=== PATIENT | female | born 1950 | race Caucasian/White ===

== ENCOUNTER 2022-01-26 10:56 | Emergency (ER) | payer MEDICARE, BC, SELFPAY ==
[2022-01-26 11:31] VITALS: BP 184/91; PULSE 71; RESP 18; TEMP 35.8; O2SAT 97; BMI 22.5
--- NOTE | 2022-01-26 11:37 | CRLHL7_ITS ---
For Patients: As a result of the Century Cures Act, medical imaging exams and procedure reports are released immediately into your electronic medical record. You may view this report before your referring provider. If you have questions, please contact your health care provider. Indication: Fall Technique: Two views left forearm Comparison: None Findings: Fracture of the distal radius. Proximal radius appears normal. Intact ulna. Degenerative changes at the wrist. Impression: Distal radial fracture. Dictated by Jacky Lynn MD @ 01/26/2022 12:59:31 PM (Electronically Signed)
--- NOTE | 2022-01-26 11:37 | CRLHL7_ITS ---
For Patients: As a result of the Cures Act, medical imaging exams and procedure reports are released immediately into your electronic medical record. You may view this report before your referring provider. If you have questions, please contact your health care provider. Indication: Fall, pain Technique: Three views left wrist Comparison: None Findings: Dorsally impacted intra-articular fracture of the distal radial metaphysis with comminution. Soft tissue swelling. Degenerative joint disease. Impression: Displaced intra-articular fracture of the distal radial metaphysis with dorsal impaction. Dictated by Jacky Lynn MD @ 01/26/2022 12:58:44 PM (Electronically Signed)
--- NOTE | 2022-01-26 11:37 | CRLHL7_ITS ---
For Patients: As a result of the Century Cures Act, medical imaging exams and procedure reports are released immediately into your electronic medical record. You may view this report before your referring provider. If you have questions, please contact your health care provider. Indication: Injury and pain Technique: Left elbow 3 views Comparison: None Findings: Bones: Alignment is normal. No fractures or bone lesions. Joint spaces: Unremarkable. No sign of joint effusion. Soft tissues: Unremarkable. Impression: No sign of acute injury. Dictated by Jacky Lynn MD @ 01/26/2022 12:57:43 PM (Electronically Signed)
--- NOTE | 2022-01-26 11:38 | ED_ITS ---
HPI - General Adult General Time Seen by Provider: 11:37 Date Seen: 01/26/22 Chief complaint: Extremity Pain/Injury, Upper Stated complaint: fall/left arm injury Time Seen by Provider: 01/26/22 10:58 Source: patient Mode of arrival: ambulatory Limitations: no limitations History of Present Illness HPI narrative: Patient is a 8 year white female was at the dog park with her dog, who has visual deficiency, the dog was playing with other dogs in accidentally ran into the poly and caution to fall on an outstretched arm on the left. Patient reports swelling on the volar surface and dorsum of the wrist, just some very minimal elbow discomfort but she is able to flex extend her elbow fully. Limited range of motion at the wrist. No open wounds. No other injuries to her neck back arms, but she did report a little bit of a sprained ankle on the right, but she is ambulatory and she has no lateral malleolar tenderness or medial malleolar tenderness or swelling. She is able to ambulate without difficulty Related Data Home Medications Medication Instructions Recorded Confirmed No Known Home Medications 01/26/22 01/26/22 Allergies Allergy/AdvReac Type Severity Reaction Status Date / Time No Known Drug Allergies Allergy Verified 01/26/22 11:36 Review of Systems Status of ROS: Reports: 6 or more systems reviewed and unremarkable except as noted in History and below [facility] Social History Smoking Status: Never smoker Second hand tobacco smoke exposure: No How often do you have a drink containing alcohol: never How often do you have six or more drinks on one occasion: Never AUDIT-C Alcohol total score: 0 Non-prescribed substance use: denies use service: No Exam Const: Vital Signs, click to edit/add: Vital Signs - 24 hr 01/26/22 11:31 Temperature 96.4 F L Pulse Rate [Pulse Oximeter] 71 Respiratory Rate 18 Blood Pressure [Ri ght Upper Arm] 184/91 H Pulse Oximetry 97 Course Course Hospital Course: Patient reports she is on no medications at home, did take ibuprofen before coming here. Does not have any allergies to medications. Has no chronic health problems. Vital Signs Vital signs: Initial Vital Signs Temperature 96.4 F L 01/26/22 11:31 Temperature Source Temporal Artery Scan 01/26/22 11:31 Pulse Rate 71 07/06/22 11:31 Respiratory Rate 18 01/26/22 11:31 Blood Pressure 184/91 H 01/26/22 11:31 Blood Pressure Mean 122 01/26/22 11:31 Blood Pressure Position Right Lateral 01/26/22 11:31 Pulse Oximetry 97 01/26/22 11:31 Oxygen Delivery Method 01/26/22 11:31 Vital Signs Temperature 96.4 F L 01/26/22 11:31 Pulse Rate 71 01/26/22 11:31 Respiratory Rate 18 01/26/22 11:31 Blood Pressure 184/91 H 01/26/22 11:31 Pulse Oximetry 97 01/26/22 11:31 Temperature 96.4 F L 01/26/22 11:31 Pulse Rate 71 01/26/22 11:31 Respiratory Rate 18 01/26/22 11:31 Blood Pressure 184/91 H 01/26/22 11:31 Pulse Oximetry 97 01/26/22 11:31 Medical Decision Making MDM Narrative Medical decision making narrative: Patient fell on an outstretched left arm rule out scaphoid fracture, rule out distal radial fracture. Discharge Plan Discharge Clinical Impression: Fracture of wrist Patient Disposition: Home, Self-Care Condition: Improved Additional Instructions: splint precautions, advil/tylenol as needed.ortho in 3-4 days. Activity Level: Light activity Discharge Diet: Regular Prescriptions: No Action No Known Home Medications 0RF Follow Up/Referrals: Frida Mike MD [Primary Care Provider] - Stand Alone [facility]
--- NOTE | 2022-01-26 12:50 | ED.NURSE ---
Patient comfortably resting left arm in sling, orthoglass short arm applied by Dr. Shields. Scheduled for ortho follow up on 929. Patient advised to utilize motrin per bottle instructions, ice a few times a day for 15 minutes each. No questions/concerns.
== END 2022-01-26 12:59 | disposition home or self-care (01) ==
PROVIDERS: Emergency Provider Family Medicine; PCP Internal Medicine
DX: S52.572A Other intraarticular fracture of lower end of left radius, initial encounter for closed fracture (principal); W01.0XXA Fall on same level from slipping, tripping and stumbling without subsequent striking against object, initial encounter
CPT/HCPCS: 29125; 73080; 73090; 73110; 99284

== ENCOUNTER 2022-02-07 07:51 | Day surgery (SDC) | payer MEDICARE, BC, SELFPAY ==
[2022-02-07] VITALS (7 sets, daily range): BP systolic 108–168; BP diastolic 69–137; PULSE 57–77; RESP 16; TEMP 36.3–36.6; O2SAT 94–99; BMI 22.2
--- NOTE | 2022-02-07 | CRLHL7_ITS ---
For Patients: As a result of the Cures Act, medical imaging exams and procedure reports are released immediately into your electronic medical record. You may view this report before your referring provider. If you have questions, please contact your health care provider. Indication: LEFT WRIST ORIF Technique: Two fluoroscopic images of the left wrist. Fluoroscopic time 15.2 seconds. IMPRESSION: Fluoroscopic guidance for ORIF distal radial fracture. Dictated by Jacky Lynn MD @ 02/08/2022 10:18:08 AM (Electronically Signed)
[2022-02-07] MEDS: MIDAZOLAM HCL 1 MG/ML inj IVP (07:57)
[2022-02-07] MEDS: fentaNYL 100 MCG/2 ML inj IVP (07:57)
[2022-02-07] MEDS: LACTATED RINGERS 1000 ML 1,000 ML 100 ML IV (08:00)
[2022-02-07] MEDS: SODIUM CHLORIDE 0.9 % (FLUSH) 10 ML SYRINGE IVF (08:30)
--- NOTE | 2022-02-07 08:59 | SUR.PREOP ---
TIME?OUT:?0858 PT/Fabiano MONTOYA RN/ Anabelle CURTIS CRNA, Abelino DURANT CRNA VERIFICATION?OF?SURGICAL?SITE,?PROCEDURE,?AND?CONSENT OBTAINED?PRIOR?TO?INVASIVE?PROCEDURE.
--- NOTE | 2022-02-07 09:51 | P.NB_ITS ---
Nerve Block Nerve Block Time Seen by Provider: 09:00 Date Seen: 02/07/22 Type of block requested by surgeon for post-operative analgesia: axillary Side: left Time out performed: Yes Verification of patient name: Yes Verification of date of : Yes Site marking: site marked Name of person performing procedure: yolande Assistants, if any: bruno Continuous monitoring Was continuous monitoring of O2 sat, B/P, cardiac cath lab manager, recorded every 15 minutes?: Yes Procedure Checklist: sterile prep and needles Ultrasound guided. Images saved: Yes Medications given in 5ml increments after negative aspiration: Ropivicaine Decadron (mg): 10 Precedex (mcg): 20 Patient tolerated procedure well: Yes
--- NOTE | 2022-02-07 10:12 | PM.ORPRC ---
Procedure Note Date of procedure: 02/07/22 Procedure: PREOPERATIVE DIAGNOSES: 1. Left distal radius fracture intra-articular, three-part fracture, dorsally angulated and displaced - unstable POSTOPERATIVE DIAGNOSES: 1. Left distal radius fracture intra-articular, three-part fracture, dorsally angulated and displaced - unstable NAME OF OPERATION: 1. Left distal radius open reduction with internal fixation of intraarticular fracture (3 parts) SURGEON: Chao Moore MD INFORMATION ASSURANCE: Timothy Abad PA-C - Of note, an behavioral modification assistant was critical for this case to aide in patient positioning, limb manipulation, tissue retraction, closure, and splinting. ANESTHESIA: Supraclavicular block EBL: Less than 10 mL IMPLANTS: Synthes dual column volar locking plate with 2.4 mm distal locking pegs; 2.4 and 2.7 mm locking and nonlocking cortical shaft screws, respectively. TOURNIQUET: 31 minutes at 225 torr. INDICATIONS: The patient is a pleasant, 71-year-old female who sustained a left wrist injury after a fall. They had difficulty with use of the extremity and deformity. Workup included xrays which revealed an unstable fracture. Given these findings, surgery was recommended to stablize the fracture. FINDINGS: Closed, intra-articular 3 part distal radius fracture with dorsal angulation and displacement. PROCEDURE: Following a thorough discussion of risks, benefits, and alternatives, consent was obtained and the operative extremity was marked. The patient was brought to the operating room and placed supine on the operating table. Induction of anesthesia was achieved. Appropriate time out was performed identifying proper patient, site and procedure. 1 gram of iv Ancef was administered within 1 hour of incision preoperatively. The left upper extremity was prepped and draped in the appropriate sterile fashion using ChloraPrep prep. The limb was exsanguinated and the tourniquet inflated. A longitudinal incision was made overlying the FCR tendon. Sharp incision through skin and subcutaneous tissue allowed identification of the FCR tendon. The superficial sheath was sharply divided, the tendon retracted ulnarly, and the deep fascial sheath also released. The FPL was retracted ulnarly and the pronator quadratus was sharply released from the radial border of the radius and subperiosteally elevated. The fracture was encountered and cleared of interposed periosteum / fracture hematoma. A reduction was performed and the appropriate plate selected. Temporary stabilization allowed C-arm fluoroscopy to confirm proper fracture reduction and plate positioning. The oblong hole was filled with a nonlocking screw followed by multiple distal locking pegs being careful to keep these in subchondral bone and extraarticular. Finally, the remaining proximal shaft screws were drilled and placed. Fluoroscopic imaging confirmed the improved position and showed the fracture to be stable. At this stage, the wound was thoroughly irrigated with normal saline. Closure performed with 0 Vicryl for the pronator quadratus, followed by deflation of the tourniquet. All major bleeding points were cauterized. Closure was then completed with 3-0 Vicryl for the subcutaneous, and 4-0 statafix for subcuticular closure. Dressings were applied along with a volar/dorsal splint. The patient was awoken from anesthesia and transferred to PACU in stable condition. PLAN: 1. Elevate operative extremity. 2. Ice, acetominphen or ibuprofen PRN. 3. Percocet for pain as needed. 4. Follow up with PA visit in 10-16 days for wound check and splint removal.
--- NOTE | 2022-02-07 10:16 | W.ANESCHARGE ---
Anesthesia Charges Start Date/Time Anesthesia Start Date: 02/07/22 Anesthesia Start Time: 09:15 Stop Date/Time Anesthesia Stop Date: 02/07/22 Anesthesia Stop Time: 10:38 Summary Emergency: No
== END 2022-02-07 11:30 | disposition home or self-care (01) ==
PROVIDERS: PCP Internal Medicine; Visit Provider Orthopaedic Surgery Sports Medicine
PROC: (CPT 25575; principal; 2022-02-07 09:25)
DX: S52.572A Other intraarticular fracture of lower end of left radius, initial encounter for closed fracture (principal)
CPT/HCPCS: 25609; 01830; 64417; 73100; 76000; 76942; A4580; C1713; J1100; J2250; J2704; J2795; J3010; J7120

== ENCOUNTER 2022-04-07 09:45 | Outpatient (RCR) | payer MEDICARE, BC, SELFPAY ==
--- NOTE | 2022-03-03 18:11 | OT.OPOE ---
OT Outpatient Ortho Eval OT Outpatient Ortho Eval Start: 03/03/22 13:21 Freq: Status: Active Protocol: Document 03/03/22 13:27 AMB (Rec: 03/03/22 13:46 AMB [id number]) E-signed By Thalia Mitchell, OTR/L, CLT, DOLPHIN RESEARCHER OT OP Ortho Eval Details Type Type Eval Complexity Low Outpatient History/Precautions Insurance Information Insurance Information Medicare B Current Condition/Medical Diagnosis Referring Provider Timothy Abad PA-C Treatment Diagnosis LUE wrist fx s/p ORIF Date of Onset 02/07/22 Other Precautions PMH: Osteopenia (2014) Surgical History: H/O left wrist surgery (~2021) History of blepharoplasty () Status post arthroscopy of right knee Status post total hysterectomy and bilateral salpingo- oophorectomy (BSO) (~10/2021) Medical/Functional History Medical History Reviewed Yes Social History 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 Pt states she was supposed to get her cast off today, but she got it wet in the shower 2 days ago so they took it off early. Pt states she doesn't have a lot of pain, but her wrist is sore. Pain Assessment Pain Present Pain Present Pain Reported Location Left Wrist Description Throbbing,Acute Intensity 3 Hand Pinch/Hairmasters Manager Strength Comments Comments AROM of forearm pronation is 60, supination is 50, opposition is to the tip of 5th digit, fist is full. Edema Assessment Location Left Hand Edema Type Non-Pitting Edema Appearance Puffy OT Objective Data Hand Hand Dominance Right Skin/Wounds Skin Integrity Comments Surgical wound is clean and dry, no s/s of infection. OT Problems Problems Problems Decreased Strength,Decreased Range of Motion,Decreased Dexterity,Decreased Fine Motor ,Decreased Coordination, Lifting,Gripping,Pinching Other Problems Opening Containers Patient Potential Good Assessment Assessment Assessment Pt presents to OT with mild pain, swelling, limited ROM and weakness in LUE which limits her ability to grasp, lift, carry objects, and open containers. Pt will benefit from skilled OT intervention to address deficits and restore full, pain-free use of her LUE. Pt is very motivated to recover. Occupational Therapy Treatment Plan - OP Potential Rehabilitation Potential Good Set Goals Goals Set with Patient Yes Goals Goals 1. Pt will be independent and compliant with HEP in order to resume full, pain-free use of the involved UE. 3 weeks 2. Pt will demonstrate full, pain-free AROM of the involved UE in order to improve ability to grasp and hold. 6 weeks 3. Pt will demonstrate pain- free grip assembler and pinch strength comparable to the uninvolved side in order to improve functional grasp, hold, reach, and lifting ability needed to complete self-care, leisure tasks, and work activities. 8 weeks. [employer] Date 06/02/22 Progress set Treatment Plan Treatment Plan Evaluation,Edema Control,Joint Mobilization,Manual Therapy, Splinting,Wound Care/Scar Management,Therapeutic Exercise,Therapeutic Activities,Self-Care/Home Management,Education Expected Frequency 1-2x Week Expected Duration 8-10 Weeks Certification Certification I Certify That: Therapy Services Provided, Therapy Plan Established, Therapy Plan Reviewed
== END 2023-02-09 23:59 | disposition home or self-care (01) ==
PROVIDERS: PCP Internal Medicine; Visit Provider Physician Assistant Surgical
DX: S62.102A Fracture of unspecified carpal bone, left wrist, initial encounter for closed fracture (principal); Z51.89 Encounter for other specified aftercare
CPT/HCPCS: 97110; 97140; 97165; 97530; X5282

== ENCOUNTER 2022-09-19 13:51 | Outpatient (CLI) | payer MEDICARE, BC, SELFPAY ==
--- NOTE | 2022-09-19 14:00 | CRLHL7_ITS ---
For Patients: As a result of the Century Cures Act, medical imaging exams and procedure reports are released immediately into your electronic medical record. You may view this report before your referring provider. If you have questions, please contact your health care provider. BILATERAL SCREENING MAMMOGRAM WITH COMPUTER-AIDED DETECTION AND TOMOSYNTHESIS CLINICAL HISTORY: 72-year-old asymptomatic female. Screening evaluation. TECHNIQUE: CC and MLO views were obtained. This digital study was evaluated with the assistance of computer-aided detection. Digital breast tomosynthesis utilized in interpretation. COMPARISON FILM: 08/27/2021, 04/28/2020. BREAST COMPOSITION: The breasts are extremely dense, which lowers the sensitivity of mammography. FINDINGS: Within the mid outer to upper outer RIGHT breast is an area of asymmetric more dense than before seen also on the MLO view in the deep lateral RIGHT breast. The area is rather large and this may simply reflect superimposed breast tissue and it may simply reflect changes in patient positioning between the two studies. However, the patient should be recalled for an exaggerated CC view of the RIGHT breast laterally as well as a true ML view. Ultrasound of the upper outer quadrant may be required to exclude an underlying cystic or solid mass. The LEFT breast is negative and unchanged. IMPRESSION: Generalized area of asymmetry in the upper outer and mid outer RIGHT breast seen on both the CC and MLO views potentially related to differences in patient positioning. However, repeat imaging and possibly RIGHT breast ultrasound are recommended. ASSESSMENT: BI-RADS Category 0: Incomplete: Need Additional Imaging Evaluation and/or Prior Mammograms for Comparison The [facility] will contact the patient for follow-up. A lay language report of this examination will be provided to the patient. Ricardo Samayoa M.D. Diagnostic/Nuclear Medicine Radiologist [email or web address] Transcribed: 10:29 a.m. PT/Dictated by: Ricardo Samayoa MD @ 09/20/2022 8:28:00 AM (Electronically Signed)
== END 2022-09-19 13:52 | disposition home or self-care (01) ==
LOC: MAMMO 13:52
PROVIDERS: PCP Internal Medicine; Visit Provider Internal Medicine
DX: Z12.31 Encounter for screening mammogram for malignant neoplasm of breast (principal); R92.8 Other abnormal and inconclusive findings on diagnostic imaging of breast
CPT/HCPCS: 77063; 77067

== ENCOUNTER 2022-09-21 13:14 | Outpatient (CLI) | payer MEDICARE, BC, SELFPAY | END 2022-09-21 13:15 | disposition home or self-care (01) | LOC: NFLDREF 13:15 | PROVIDERS: PCP Internal Medicine; Visit Provider Internal Medicine | DX: R42 Dizziness and giddiness (principal) | CPT/HCPCS: 80048 ==

== ENCOUNTER 2022-09-22 09:36 | Outpatient (CLI) | payer MEDICARE, BC, SELFPAY ==
--- NOTE | 2022-09-22 09:45 | CRLHL7_ITS ---
For Patients: As a result of the Century Cures Act, medical imaging exams and procedure reports are released immediately into your electronic medical record. You may view this report before your referring provider. If you have questions, please contact your health care provider. DIGITAL DIAGNOSTIC RIGHT MAMMOGRAM USING TOMOSYNTHESIS AND COMPUTER-AIDED DETECTION INDICATION: 72-year-old female. Follow-up an asymmetric density in the upper outer RIGHT breast. TECHNIQUE: Exaggerated CC view of the RIGHT breast were performed laterally. A true ML view was performed. COMPARISON: 08/27/2021. 09/19/2022. FINDINGS: The previously suggested asymmetry in the upper outer RIGHT breast is simply superimposed breast tissue. No underlying mass. No architecture distortion. No suspicious microcalcifications. The breast tissue is heterogeneously dense, which may obscure small masses. Ultrasound is not recommended at this time. Annual mammography is recommended. These findings were discussed with the patient. IMPRESSION: Negative additional views of the RIGHT breast. BI-RADS Category 1: Negative A lay language report of this examination will be provided to the patient. Dictated by: Ricardo Samayoa MD @09/22/2022 10:21:04 AM j/Dictated by: Ricardo Samayoa MD @ 09/22/2022 10:21:00 AM (Electronically Signed)
== END 2022-09-22 09:37 | disposition home or self-care (01) ==
LOC: MAMMO 09:37
PROVIDERS: PCP Internal Medicine; Visit Provider Internal Medicine
DX: N63.11 Unspecified lump in the right breast, upper outer quadrant (principal); R92.8 Other abnormal and inconclusive findings on diagnostic imaging of breast
CPT/HCPCS: 77065; G0279

== ENCOUNTER 2023-09-20 13:05 | Outpatient (CLI) | payer MEDICARE, SELFPAY ==
--- NOTE | 2023-09-20 13:20 | MM_ITS ---
Patient: TERESA CHICAGO Facility:?[facility] Patient ID:?[id number] Site Patient ID:?[id number]. Site :?[id number] Study:?XRay-Breast Bilateral 3D W/CAD-09/20/2023 1:31:02 PM Ordering Physician:Frida Franco Final Report: BILATERAL SCREENING MAMMOGRAM WITH COMPUTER-AIDED DETECTION AND TOMOSYNTHESIS TECHNIQUE: CC and MLO views were obtained. These mammographic images have been obtained using full-field digital technique. These mammographic images were interpreted with the benefit of computer-aided detection. Breast Tomosynthesis was used in this interpretation. COMPARISON FILM: 09/22/22, 09/19/22, 08/27/21. FINDINGS: The breasts are extremely dense, which lowers the sensitivity of mammography. IMPRESSION: There is no radiographic evidence for malignancy. ASSESSMENT: BI-RADS Category 1: Negative RECOMMENDATION: Routine screening mammogram in 1 year. A lay language report of this examination will be provided to the patient. Jacky Lynn M.D. Diagnostic Radiologist [email or web address] DSM/sp R& Transcribed: 6:23 p.m. SP/Dictated by: Jacky Lynn MD @ 09/21/2023 10:27:00 AM Signed by:?Jacky Lynn MD @09/22/2023 5:37:13 AM (Electronic Signature)
== END 2023-09-20 13:06 | disposition home or self-care (01) ==
LOC: MAMMO 13:09
PROVIDERS: PCP Internal Medicine; Visit Provider Internal Medicine
DX: Z12.31 Encounter for screening mammogram for malignant neoplasm of breast (principal); R92.2 Inconclusive mammogram
CPT/HCPCS: 77063; 77067

== ENCOUNTER 2023-11-08 08:21 | Outpatient (CLI) | payer MEDICARE, SELFPAY ==
--- OUTSIDE RECORDS SUMMARY | 2023-11-16 12:29 | XMS_ITS | Clinical Summary ---
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 Sprain of lumbar region 02/25/2009 Rib pain 02/25/2009 Social History Tobacco Use Types Packs/Day Years Used Date Smoking Tobacco: Never Smokeless Tobacco: Never Tobacco Cessation:Counseling Given: Yes Alcohol Use Standard Drinks/Week Comments Not Asked 0 (1 standard drink = 0.6 oz pur e alcohol) Social Connections Answer Date Recorded Frequency of Communication with Friends and Fami ly Not on file 07/24/2021 Financial Resource Strain Answer Date R ecorded Difficulty of Paying Living Expenses Not on file 07/24/2021 Difficulty of Paying Living Expenses Not on file 07/24/2021 Sex and Gender Information Value Date Recorded Sex Assigned at Not on file Gender Identity Not on file Sexual Orientation Not on file Obstetrics History Last Filed Vital Signs Vital Sign Reading Time Taken Comments Blood Pressure 147/78 10/16/2020 10:59 AM CDT Pulse 72 10/16/2020 10:59 AM CDT Temperature 36.6 ??C (97.9 ??F) 10/16/2020 10:59 AM C DT Respiratory Rate - - Oxygen Saturation 98% 10/16/2020 10:59 AM CDT Inhaled Oxygen Concentration - - Weight 61.1 kg (134 lb 9.6 oz) 05/11/2020 1:29 P M CDT shoes on Height - - Body Mass Index - - Plan of Treatment Health Maintenance Due Date Last Done Comments Tdap 1962 Depression screening for age 12+ 1963 BMI (ht and wt on same day) for age 18+ 1969 Hepatitis C screening for age 18-79 1969 Tetanus booster 1971 Colonoscopy through age 75 1996 Lipids for age 45-75 1996 Zoster (shingles) series for age 50+ (1 of 2) 06/02/20 Mammogram for age 45-75 03/12/2016 03/12/2015 DEXA/DXA scan for age 65+ 2016 03/12/2015 Medicare Wellness for age 65+ 2016 Pneumococcal series for age 65+ (1 of 1 - PCV) 016 COVID-19 vaccine series ( - 2022-24 season) 3 Influenza for age 65+ 03/24/2024 Procedures Procedure Name Priority Date/Time Associated Diagnosis Comments SCAN-BONE DENSITOMETRY DEXA 03/12/2015 12:00 PM CDT SCAN-MAMMOGRAPHY REPORT 03/12/2015 12:00 AM CDT from Last 3 Months or Most Recently Relevant to Health Maintenance Results * SCAN-BONE DENSITOMETRY DEXA (03/12/2015 12:00 PM CDT) Anatomical Region Laterality Modality Other Scanner OTHER * SCAN-MAMMOGRAPHY REPORT (03/12/2015 12:00 AM CDT) Anatomical Region Laterality Modality Other Scanner OTHER from Last 3 Months or Most Recently Relevant to Health Maintenance Care Teams Breakfast Bar Attendant Relationship Specialty Start Date End Date Lindsay Liz MD PCP - General Family Practice 11/19/10
== END 2023-11-08 08:22 | disposition home or self-care (01) ==
LOC: NFLDREF 11-16 12:23
PROVIDERS: PCP Internal Medicine; Referring Provider Internal Medicine; Visit Provider Internal Medicine
DX: E78.5 Hyperlipidemia, unspecified (principal); M81.0 Age-related osteoporosis without current pathological fracture; M85.80 Other specified disorders of bone density and structure, unspecified site
CPT/HCPCS: 80061; 82306

== ENCOUNTER 2024-10-15 11:20 | Outpatient (CLI) | payer MEDICARE, SELFPAY ==
--- NOTE | 2024-10-15 11:30 | CRLHL7_ITS ---
For Patients: As a result of the Century Cures Act, medical imaging exams and procedure reports are released immediately into your electronic medical record. You may view this report before your referring provider. If you have questions, please contact your health care provider. BILATERAL SCREENING MAMMOGRAM WITH COMPUTER-AIDED DETECTION AND TOMOSYNTHESIS TECHNIQUE: CC and MLO views were obtained. These mammographic images have been obtained using full-field digital technique. These mammographic images were interpreted with the benefit of computer-aided detection. Breast Tomosynthesis was used in this interpretation. COMPARISON FILM: 09/20/23, 09/22/22, 09/19/22. FINDINGS: The breasts are heterogeneously dense, which may obscure small masses. IMPRESSION: There is no radiographic evidence for malignancy. ASSESSMENT: BI-RADS Category 1: Negative RECOMMENDATION: Routine screening mammogram in 1 year. A lay language report of this examination will be provided to the patient. Jacky Lynn M.D. Diagnostic Radiologist [email or web address] SP/Dictated by: Jacky Lynn MD @ 10/22/2024 10:42:00 AM (Electronically Signed)
== END 2024-10-15 11:21 | disposition home or self-care (01) ==
LOC: MAMMO 11:21
PROVIDERS: PCP Internal Medicine; Visit Provider Internal Medicine
DX: Z12.31 Encounter for screening mammogram for malignant neoplasm of breast (principal); R92.333 Mammographic heterogeneous density, bilateral breasts
CPT/HCPCS: 77063; 77067

== ENCOUNTER 2024-12-26 14:42 | Outpatient (CLI) | payer MEDICARE, SELFPAY ==
--- NOTE | 2024-12-26 15:00 | CRLHL7_ITS ---
For Patients: As a result of the Century Cures Act, medical imaging exams and procedure reports are released immediately into your electronic medical record. You may view this report before your referring provider. If you have questions, please contact your health care provider. DXA BONE MINERAL DENSITY STUDY Current height (in): 64. Weight (lb): 133. Menopause age: 56. Ethnicity: White. 1. Have you had a previous hip or vertebral fracture? No. 2. Have you had any fractures during your adult life which did not result from significant trauma (e.g., auto accident)? No. 3. Did either of your parents have a hip fracture? No. 4. Do you smoke? No. 5. Have you ever taken Glucocorticoids? No. 6. Do you have rheumatoid arthritis? No. 7. Do you have secondary osteoporosis? No. 8. Do you drink 3 or more alcoholic drinks per day? No. 9. Are you being treated for osteoporosis? No. 10. Have you ever taken any of the following medications: Actonel, Evista, Fosamax, Miacalcin, Reclast, Boniva, Forteo, HRT (i.e. estrogen/hormone therapy), Protelos, Prolia, Vitamin D, Calcium, other ??? please specify. ANSWER: Yes, Vitamin D. 11. Do you have any of the following medical conditions: Anorexia or bulimia, asthma or emphysema, end stage renal disease, hyperparathyroidism, any seizure disorders, cancer, inflammatory bowel diseases, hysterectomy, other ??? please specify. ANSWER: Yes, Hysterectomy. 12. What was your maximum height (inches)? 65.5. 13. Do you perform weight bearing exercise regularly? Yes. 14. Do you regularly consume dairy products? Yes. 15. Do you drink caffeinated beverages? Yes. 16. At what age did your period start? 12. 17. Are you premenopausal? No. 18. How many full term pregnancies have you had? 2. 19. Have you ever missed your period for more than 6 months in a row (not including or menopause)? No. TECHNIQUE: Bone mineral density study was performed using the [employer]. FINDINGS: The results of the study expressed as bone mineral density (BMD) are as follows: Lumbar spine L1, L4: BMD: 1.037 g/cm2. T-score: 0.0. Z-score: 2.3. Neck Left: BMD: 0.705 g/cm2. T-score: -1.3. Z-score: 0.7. Right: BMD: 0.658 g/cm2. T-score: -1.7. Z-score: 0.3. Total Left: BMD: 0.861 g/cm2. T-score: -0.7. Z-score: 1.0. Right: BMD: 0.907 g/cm2. T-score: -0.3. Z-score: 1.4. Radius Right 33%: BMD: 0.600 g/cm2. T-score: -1.6. Z-score: 0.8. IMPRESSION: Osteopenia. COMPARISON: Compared with scan of 04/30/2020, the bone mineral density has increased by 16.5 percent at the spine and decreased by 1.9 percent at the hip. Compared with scan of 03/12/2015, the bone mineral density has decreased by 8.3 percent at the spine and decreased by 4.0 percent at the hip. FRAX 10-year Fracture Risk Major Osteoporotic Fracture: 11 percent Hip Fracture: 2.3 percent Reported Risk Factors: [place] () Neck BMD=0.658, BMI=22.8 Jacky Lynn M.D. Diagnostic Radiologist [email or web address] BRIAN/rachel DW/Dictated by: Jacky Lynn MD @ 12/30/2024 9:10:00 AM (Electronically Signed)
== END 2024-12-26 14:43 | disposition home or self-care (01) ==
LOC: RAD 14:42
PROVIDERS: PCP Internal Medicine; Visit Provider Internal Medicine
DX: M85.88 Other specified disorders of bone density and structure, other site (principal); M85.89 Other specified disorders of bone density and structure, multiple sites
CPT/HCPCS: 77080

== ENCOUNTER 2025-05-29 21:33 | Emergency (ER) | payer MEDICARE, SELFPAY ==
--- OUTSIDE RECORDS SUMMARY | 2025-05-29 21:34 | XMS_ITS | Clinical Summary ---
Author Organization [employer] [facility] Address [address] [place] [id number] Care Team Providers Care Senior Care Provider Name Role Phone Lindsay Liz MD Primary [...] Paying Living Expenses Not on file 07/24/2021 Comments Unknown Sex and Gender Information Value Date Recorded Sex Assigned at Not on file Legal Sex Female 6:50 AM [employer] Gender Identity Not on file Sexual Orientation Not on file Obstetrics History Last Filed Vital Signs Vital Sign Reading Time Taken Comments Blood Pressure 147/78 10/16/2020 10:59 AM CDT Pulse 72 10/16/2020 10:59 AM CDT Temperature 36.6 C (97.9 F) 10/16/2020 10:59 AM CDT Respiratory Rate - - Oxygen Saturation 98% 10/16/2020 10:59 AM CDT Inhaled Oxygen Concentration - - Weight 61.1 kg (134 lb 9.6 oz) 05/11/2020 1:29 P M CDT shoes on Height - - Body Mass Index - - Plan of Treatment Health Maintenance Due Date Last Done Comments Tetanus booster 1962 Depression screening for age 12+ 1963 BMI (ht and wt on same day) for age 18+ 1969 Hepatitis C screening for ag e 18-79 1969 Colonoscopy through age 75 1996 Lipids for age 45-75 1996 Pneumococcal series for age 50+ (1 of 1 - PCV) 2001 Zoster (shingles) series for age 50+ (1 of 2) 2001 Mammogram for age 45-75 03/12/2016 03/12/2015 DEXA/DXA scan for age 65+ 2016 03/12/2015 Medicare Wellness for age 65+ 2016 Influenza Vaccine (#1) 2025 RSV vaccine for adults or (1 - 1-dose 75+ series) 2026 Hepatitis B series for 19+ Aged Out N o longer eligible based on patient's age to complete this topic Procedures Procedure Name Priority Date/Time Associated Diagnosis Comments SCAN-BONE DENSITOMETRY DEXA 03/12/2015 12:00 PM CDT SCAN-MAMMOGRAPHY REPORT 03/12/2015 12:00 AM CDT from Last 3 Months or Most Recently Relevant to Health Maintenance Results * SCAN-BONE DENSITOMETRY DEXA (03/12/2015 12:00 PM CDT) Anatomical Region Laterality Modality Other us Scanner OTHER Final Result * SCAN-MAMMOGRAPHY REPORT (03/12/2015 12:00 AM CDT) Anatomical Region Laterality Modality Other us Scanner OTHER Final Result from Last 3 Months or Most Recently Relevant to Health Maintenance Insurance [employer] [place] [employer] ONLY [employer] Care Teams Senior Care Provider Relationship Specialty Start Date End Date Lindsay Liz MD PCP - General Family Practice 11/19/10
[2025-05-29 21:42] VITALS: BP 183/96; PULSE 110; RESP 18; TEMP 36.4; O2SAT 97; BMI 22.6
[2025-05-29] MEDS: OXYMETAZOLINE 0.05% NASAL SPRAY 1 SPRAY NOSTRIL-B (22:26)
--- NOTE | 2025-05-29 22:28 | ED_ITS ---
Review of Systems Status of ROS: Reports: 10 or more systems reviewed and unremarkable except as noted in History and below Narrative: Constitutional: No fevers, no weight gain or loss. Eyes: No discharge. No vision changes. HENT: No congestion, no sore throat, no ear pain. Left nostril bleed. Cardiovascular: No chest pain, no palpitations. Respiratory: No shortness of breath, no wheezes, no cough. Gastrointestinal: No abdominal pain, no vomiting, no diarrhea. Genitourinary: No dysuria, no hematuria. Musculoskeletal: Normal range of motion. Skin: No rashes, no pruritis. Neurological: No dizziness, weakness, sensory change, speech change. Endo/Heme/Allergies: No bruising or bleeding. No polydipsia. Pysch: no suicidality, no anxiety, no insomnia. All other systems reviewed and are negative. 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) ?Z90.79 - Acquired absence of other genital organ(s) (ICD-10) Status post arthroscopy of right knee ?Z98.890 - Other specified postprocedural states (ICD-10) History of blepharoplasty (08/08/18) ?Z98.890 - Other specified postprocedural states (ICD-10) Social History (Updated 12/10/24 @ 14:09 by Caron Wright ~ [facility]) What is your current living situation?: I presently have a place to live Problems where you live: declined to answer In the past 12 months, utilities in danger of being shut off: no In past 12 months, lack of transportation kept you from medical appts, meetings, work, or getting things needed for daily living: no In the past 12 mos, have been you worried that your food would run out before you had money to buy more?: never true In the past 12 mos, the food you bought just didn't last and you didn't have money to buy more?: never true Smoking Status: Never smoker Second hand tobacco smoke exposure: No How often do you have a drink containing alcohol: never How often do you have six or more drinks on one occasion: Never AUDIT-C Alcohol total score: 0 Non-prescribed substance use: denies use Caffeine: Yes How often does anyone, including family, friends and others, physically hurt you : never How often does anyone, including family, friends and others, insult or talk down to you: never How often does anyone, including family, friends and others, threaten you with harm: never How often does anyone, including family, friends and others, scream or curse at you: never service: No Exam Narrative: Exam Narrative: Constitutional: Well-developed, well-nourished, no acute distress. HEENT: Normocephalic, atraumatic. Right nostril appears normal. Left nostril has a small amount of red blood in the anterior aspect. Posterior to this the nostril appears clear. No blood in the oropharynx. Neck: Normal range of motion. Nontender. Supple. Heart: Intact distal pulses. Lungs: No chest discomfort. No wheezes, rhonchi, or rales. Abdomen: Nontender. Back: Normal range of motion. Extremities: Normal range of motion. No injury. Skin: Intact. No rash. Warm. No erythema or pallor. Neurologic: No altered sensation. No weakness. Alert and oriented. Psychiatric: No suicidality. No anxiety or depression. No insomnia. Nursing notes and vitals signs are reviewed. Const: Vital Signs, click to edit/add: Vital Signs - 24 hr 05/29/25 21:42 Temperature 97.5 F L Pulse Rate [Pulse Oximeter] 110 H Respiratory Rate 18 Blood Pressure [Ri ght Upper Arm] 183/96 H Pulse Oximetry 97 Oxygen Delivery Me thod Room Air Course Vital Signs Vital signs: Initial Vital Signs Temperature 97.5 F L 05/29/25 21:42 Temperature Source Temporal Artery Scan 05/29/25 21:42 Pulse Rate 110 H 05/29/25 21:42 Respiratory Rate 18 05/29/25 21:42 Blood Pressure 183/96 H 05/29/25 21:42 Blood Pressure Mean 125 H 05/29/25 21:42 Pulse Oximetry 97 05/29/25 21:42 Oxygen Delivery Method Room Air 05/29/25 21:42 Vital Signs Temperature 97.5 F L 05/29/25 21:42 Pulse Rate 110 H 05/29/25 21:42 Respiratory Rate 18 05/29/25 21:42 Blood Pressure 183/96 H 05/29/25 21:42 Pulse Oximetry 97 05/29/25 21:42 Oxygen Delivery Method Room Air 05/29/25 21:42 Temperature 97.5 F L 05/29/25 21:42 Pulse Rate 110 H 05/29/25 21:42 Respiratory Rate 18 05/29/25 21:42 Blood Pressure 183/96 H 05/29/25 21:42 Pulse Oximetry 97 05/29/25 21:42 Oxygen Delivery Method Room Air 05/29/25 21:42 Medications Administered Medications: Generic Name Dose Route Start Last Admin Trade Name Freq PRN Reason Stop Dose Admin Oxymetazoline HCl 1 spray 05/29/25 22:20 05/29/25 22:26 Oxymetazoline 0.05% Nasal [place] NOSTRIL-B 05/29/25 22:21 1 spray ONCE ONE Administration MDM - Epistaxis MDM Narrative Medical decision making narrative: A nasal clamp was applied prior to my arrival in the room. At my exam there was no active bleeding but a sign of injury in the anterior inferior aspect of her left nostril. Patient received Afrin and instructions for using a nasal clamp. She is okay to be discharged home. Discharge Plan Discharge Clinical Impression: Epistaxis Patient Disposition: Home, Self-Care Condition: Improved Additional Instructions: If rebleeding occurs use nasal clamp and Afrin as directed. Follow up with MD return if symptoms are persistent or worsening. Prescriptions: No Action No Known Home Medications Follow Up/Referrals: Frida Mike MD [Primary Care Provider, Internal Medicine] Stand Alone Forms: Sp[employer] Info Instructions
== END 2025-05-29 22:42 | disposition home or self-care (01) ==
LOC: ED 22:37
PROVIDERS: Emergency Provider Emergency Medicine Emergency Medical Services; PCP Internal Medicine
DX: R04.0 Epistaxis (principal)
CPT/HCPCS: 99282; 99283; 99284